=== PATIENT | male | born 2005 | race Caucasian/White ===

== ENCOUNTER 2023-06-30 16:04 | Emergency (ER) | payer OTHER, SELFPAY ==
[2023-06-30 16:14] VITALS: BP 149/86; PULSE 83; RESP 14; TEMP 37; O2SAT 100
--- NOTE | 2023-06-30 16:53 | ED.SKABFB ---
HPI - Skin/Abscess/Foreign Bdy General Chief complaint: Skin/Abscess/Foreign Body Stated complaint: Neck Lump/Irritation Source: patient and RN notes reviewed History of Present Illness HPI narrative: 18-year-old male presents to urgent care with complaints of a lump to the right side of his neck. Patient states he 1st noticed what he thought was a bug bite or infected hair behind his right ear about a week ago. Patient states this lump appeared 2 days after that. Denies any pain with this lump. Denies any fevers, chills sore throat, ear pain, congestion, vomiting, diarrhea, chest pain, or shortness of breath. Denies any unexpected weight loss or night sweats. Related Data Allergies Allergy/AdvReac Type Severity Reaction Status Date / Time No Known Allergies Allergy Verified 06/30/23 16:24 Review of Systems Review of Systems: Pertinent positives and pertinent negatives per HPI. PMFSH Comments At the time of my signature, I reviewed and agree with the nursing past medical, surgical, social, and family history. There is no relevant family history pertinent to the patient complaint. Exam Narrative: GENERAL: This is a well-nourished, well-developed patient, in no apparent distress. HEAD: normocephalic, atraumatic. EYES: Sclera clear/white. Vision is grossly intact. EARS: External ears normal, auditory canals clear and without drainage, TMs normal without perforation. Hearing grossly intact. NOSE: External nose normal with no obvious nasal discharge, nares without redness, no rhinorrhea. THROAT: Mucous membranes moist, posterior pharynx clear. NECK: Neck supple, non-tender with 2 cm tonsillar lymph node, right sided, hard, non-tender. mild lymphadenopathy to left anterior cervical. CARDIOVASCULAR: Regular rate and rhythm without murmurs, gallops, or rubs. RESPIRATORY: Clear to auscultation. Breath sounds equal bilaterally. No wheezes, rales, or rhonchi. SKIN: 1.5 cm lesion to posterior right ear, no drainage, minimal erythema, circular in shape. NEURO: awake, alert, and oriented to person, place and time. There were no obvious focal neurologic abnormalities. EXTREMITIES: No clubbing, cyanosis, or edema. No joint tenderness, effusion, or edema noted. BACK: Nontender without deformity or crepitus. No flank tenderness. Course Course Level of Care: Express Care Visit Vital Signs Vital signs: Vital Signs Temperature 98.6 F 06/30/23 16:14 Pulse Rate 83 06/30/23 16:14 Respiratory Rate 14 06/30/23 16:14 Blood Pressure 149/86 H 06/30/23 16:14 Pulse Oximetry 100 06/30/23 16:14 Oxygen Delivery Room Air 06/30/23 16:14 Temperature 98.6 F 06/30/23 16:14 Pulse Rate 83 06/30/23 16:14 Respiratory Rate 14 06/30/23 16:14 Blood Pressure 149/86 H 06/30/23 16:14 Pulse Oximetry 100 06/30/23 16:14 Oxygen Delivery Room Air 06/30/23 16:14 reviewed MDM - Skin/Abscess/Foreign Bdy MDM Narrative Medical decision making narrative: Take the antibiotics as directed. Follow up with your taper operator in 1 week. Drink plenty of fluids. Differential Diagnosis Differential diagnosis: Likely other (lymphadenopathy, AOM, strep throat, viral illness, cellulitis) Critical Care Time Critical Care Time Critical Care Time: No Discharge Plan Discharge Clinical Impression: Lymphadenopathy Patient Disposition: Home, Self-Care Condition: Stable Instructions: Antibiotic Form, Lymphadenopathy (ED) Additional Instructions: Take the antibiotics as directed. Follow up with your taper operator in 1 week. Drink plenty of fluids. Prescriptions: New cephalexin 500 mg capsule 500 mg PO Q12H 7 Days Qty: 14 0RF Follow-up/Referrals: Xi Rader [facility] [Primary Care Provider] - Time of Disposition: 16:54
== END 2023-06-30 16:58 | disposition home or self-care (01) ==
PROVIDERS: Emergency Provider Nurse Practitioner Family
DX: R59.1 Generalized enlarged lymph nodes (principal)
CPT/HCPCS: 99203; G0463

== ENCOUNTER 2023-12-17 16:46 | Emergency (ER) | payer OTHER, SELFPAY ==
[2023-12-17 16:57] VITALS: BP 143/82; PULSE 93; RESP 20; TEMP 37.2; O2SAT 99
--- NOTE | 2023-12-17 16:59 | ED.URI ---
HPI - URI/Sore Throat General Chief Complaint: Upper Respiratory Infection Stated Complaint: head/throat/sinus History of Present Illness HPI Narrative: Patient presents with a sore throat nasal congestion and occasional cough. No trouble swallowing no drooling no shortness of breath no chest pain. Patient states he has taken some Mucinex [id number] for symptoms patient states his symptoms started and he has started to feel better. Related Data Allergies Allergy/AdvReac Type Severity Reaction Status Date / Time No Known Allergies Allergy Verified 06/30/23 16:24 Review of Systems Review of Systems: CONSTITUTIONAL: Denies chills, or sweats. Reports fever and generalized body aches EYES: Denies visual changes, redness, or discharge. ENT: Denies otalgia. Reports nasal congestion runny nose and sore throat CARDIOVASCULAR: Denies chest pain, palpitations, or edema. RESPIRATORY: Denies dyspnea. Reports occasional cough GASTROINTESTINAL: Denies abdominal pain, nausea, vomiting, or diarrhea. GENITOURINARY: Denies dysuria or hematuria. SKIN: Denies rash or itching. MUSCULOSKELETAL: Denies back pain, joint pain, or myalgia. Reports generalized body aches NEUROLOGIC: Denies headache, numbness, or weakness. PSYCHIATRIC: Denies anxiety or depression. PMFSH Comments At time of signature, agree with nursing past medical, surgical, social and family history. There is no relevant family history pertinent to the presenting complaint Exam Narrative: The patient is a well-developed, well-nourished in no acute distress. SKIN: Skin is warm and dry without erythema, swelling or exudate. There is good turgor. No tenting. HEAD: Atraumatic. Normocephalic. No temporal or scalp tenderness. EYES: Moist and bright. Sclera and conjunctivae normal. No discharge. PERRLA. Extraocular motions intact. Gross visual acuity intact. EARS: Pinna is normal shape and contour. Clear external auditory canals. TM pearly chang with good cone of light, no erythema or suppuration. Bilateral cerumen noted no gross hearing deficit. NOSE: pink, moist mucosa with good air movement. Clear rhinorrhea without nasal flaring. Septum midline. Mouth: moist mucous membranes. THROAT; mild erythema noted to posterior oropharynx with moderate postnasal drainage. Without exudate or ulceration.. Uvula midline. Normal movement of soft palate. NECK: Supple and nontender with full range of motion without discomfort. No meningeal signs. LUNGS: Equal and bilateral breath sounds without wheezes, rales or rhonchi. CHEST: The chest wall is without retractions or use of accessory muscles. HEART: Has a regular rate and rhythm without murmur, gallops, click or rub. ABDOMEN: Soft, nontender with positive active bowel sounds. No rebound tenderness. EXTREMITIES: Without cyanosis, clubbing or edema. Equal 2+ distal pulses and 2 second capillary refill noted. NEUROLOGIC: alert, active, . The patient moves all extremities with normal muscle strength. Normal muscle tone is noted. Normal coordination is noted. NO focal neurological findings noted. Course Course Level of Care: Express Care Visit Vital Signs Vital signs: Vital Signs Temperature 37.2 C 12/17/23 16:57 Pulse Rate 93 12/17/23 16:57 Respiratory Rate 20 12/17/23 16:57 Blood Pressure 143/82 H 12/17/23 16:57 Pulse Oximetry 99 12/17/23 16:57 Oxygen Delivery Room Air 12/17/23 16:57 Temperature 37.2 C 12/17/23 16:57 Pulse Rate 93 12/17/23 16:57 Respiratory Rate 20 12/17/23 16:57 Blood Pressure 143/82 H 12/17/23 16:57 Pulse Oximetry 99 12/17/23 16:57 Oxygen Delivery Room Air 12/17/23 16:57 At time of signature, agree with nursing past medical, surgical, social and family history. There is no relevant family history pertinent to the presenting complaint Discharge Plan Discharge Clinical Impression: Upper respiratory infection, Viral infection, Pharyngitis Patient Dispos
== END 2023-12-17 17:11 | disposition home or self-care (01) ==
PROVIDERS: Emergency Provider Nurse Practitioner Family
DX: J06.9 Acute upper respiratory infection, unspecified (principal); B34.9 Viral infection, unspecified; J02.9 Acute pharyngitis, unspecified
CPT/HCPCS: 87081; 87880; 99213; G0463